=== PATIENT | male | born 1990 | race Caucasian/White ===

== ENCOUNTER → 2020-09-16 | Outpatient (CLI) | payer OTHER ==
--- NOTE | 2020-09-16 12:02 | REP ---
INDICATION: TWISTED ANKLE/FOOT. COMPARISON: None. TECHNIQUE: Four views FINDINGS: No acute fracture or destructive osseous lesion. The mortise is intact. IMPRESSION: Within normal limits <Electronically signed by John Sofia > 09/16/20 [id number]
--- NOTE | 2020-09-16 12:03 | REP ---
INDICATION: TWISTED ANKLE/FOOT. COMPARISON: None. TECHNIQUE: Four views FINDINGS: The joint spaces are symmetric and relatively well maintained. There is no evidence of acute fracture or destructive osseous lesion. IMPRESSION: Negative. <Electronically signed by John Sofia > 09/16/20 [id number]
== END ==
LOC: M RAD 11:26
PROVIDERS: ATTEND Physician Assistant
DX: S99.812A Other specified injuries of left ankle, initial encounter (principal); Y92.9 Unspecified place or not applicable; Y93.9 Activity, unspecified; Y99.9 Unspecified external cause status; W18.42XA Slipping, tripping and stumbling without falling due to stepping into hole or opening, initial encounter